=== PATIENT | male | born 1995 | race Caucasian/White ===

== ENCOUNTER 2018-08-17 22:36 | Emergency (ER) | payer OTHER ==
--- NOTE | 2018-08-18 01:01 | XR ---
EXAMINATION TYPE: XR chest 2V DATE OF EXAM: 08/18/2018 COMPARISON: NONE HISTORY: Cough and fever TECHNIQUE: Frontal and lateral views of the chest are obtained. FINDINGS: Heart and mediastinum are normal. Lungs are clear. Diaphragm is normal. Bony thorax is int act. Pulmonary vascularity is normal. IMPRESSION: Normal chest
[2018-08-18] MEDS ORDERED: IBUPROFEN 800 MG TAB PO STA (01:15)
--- NOTE | 2018-08-18 02:41 | ED ---
URI HPI - General Source: patient Mode of arrival: ambulatory Limitations: no limitations <July Fraga - Last Filed: 08/21/18 15:14> <Melissa Juan - Last Filed: 08/27/18 00:29> - General Chief Complaint: Upper Respiratory Infection Stated Complaint: Cough - History of Present Illness Initial Comments: 23yo male who denies PMH presenting today for cc of 2 days of cough, body aches , chills. Pt states that he has had a mild cough for the past two days, he developed worsening body aches, chills and felt warm to touch for the past 24 hours. Pt states he has also had sore throat but atributes this to coughing, pt denies sputum production. Pt states he coughs so hard he gets a headache, denies constant/peristent headache, chest pain, shortness of breath, abdomial pain, nausea, vomiting, diarrhea, congestion, photophobia, neck stiffness. When symptoms persisted he presented for evaluation. Upon arrival pt febrile, but appearing nontoxic. Remainder of ROS within acceptable limits (July Fraga) - Related Data Previous Rx's Medication Instructions Recorded Ibuprofen 800 mg PO Q8H PRN 7 Days #21 tablet 08/18/18 Allergies Allergy/AdvReac Type Severity Reaction Status Date / Time No Known Allergies Allergy Verified 08/17/18 23:09 Review of Systems ROS Other: All systems not noted in ROS Statement are negative. Constitutional: Reports: fever, chills, night sweats Eyes: Denies: vision change ENT: Reports: throat pain. Denies: ear pain Respiratory: Reports: cough. Denies: dyspnea, wheezes, hemoptysis, stridor Cardiovascular: Denies: chest pain, palpitations, dyspnea on exertion Endocrine: Reports: fatigue Gastrointestinal: Denies: abdominal pain, diarrhea Genitourinary: Denies: urgency, dysuria, frequency Musculoskeletal: Denies: back pain Skin: Denies: rash Neurological: Reports: headache. Denies: numbness, paresthesias, confusion <July Fraga - Last Filed: 08/21/18 15:14> ROS Other: All systems not noted in ROS Statement are negative. <Melissa Juan - Last Filed: 08/27/18 00:29> ROS Statement: Those systems with pertinent positive or pertinent negative responses have been documented in the HPI. Past Medical History Past Medical History: No Reported History History of Any Multi-Drug Resistant Organisms: None Reported Past Surgical History: No Surgical Hx Reported Past Psychological History: No Psychological Hx Reported Smoking Status: Current every day smoker Past Alcohol Use History: Rare Past Drug Use History: None Reported <July Fraga L - Last Filed: 08/21/18 15:14> General Exam Limitations: no limitations <July Fraga L - Last Filed: 08/21/18 15:14> <DrakeMelissa P - Last Filed: 08/27/18 00:29> - General Exam Comments Initial Comments: General: The patient is awake and alert, in no distress, and does not appear acutely ill. Eye: Pupils are equal, round and reactive to light, extra-ocular movements are intact. No nystagmus. There is normal conjunctiva bilaterally. No signs of icterus. Ears, nose, mouth and throat: There are moist mucous membranes and no oral lesions. Oropharynx nonerythematous, no tonsillar enlargement or lesions. Uvula midline. Tympanic membranes within normal limits bilaterally, no erythema , effusions, retractions or bulging. No noted perforation. External auditory canal been normal limits, no edema or erythema. No tenderness to palpation of the mastoid. Neck: The neck is supple, there is no tenderness or JVD. No anterior cervical adenopathy. Cardiovascular: There is a regular rate and rhythm. No murmur, rub or gallop is appreciated. Respiratory: Lungs are clear to auscultation, respirations are non-labored, breath sounds are equal. No wheezes, stridor, rales, or rhonchi. Dry cough audible, no specific characteristic. Gastrointestinal: Soft, non-distended, non-tender abdomen without masses or organomegaly noted. There is no rebound or guarding present. No CVA tenderness. Bowel sounds are unremarkable. Musculoskeletal: Normal ROM, no tenderness. Strength 5/5. Sensation intact. Radial pulses equal bilaterally 2+. Neurological: A&O x 3. CN II-XII intact, There are no obvious motor or sensory deficits. Coordination appears grossly intact. Speech is normal. Skin: Skin is warm and dry and no rashes or lesions are noted. Psychiatric: Cooperative, appropriate mood & affect, normal judgment. (July Fraga) Vital Signs 08/17/18 08/18/18 23:06 02:54 Temperature 99.7 F H 98.8 F Pulse Rate 112 H 100 Respiratory 18 16 Rate Blood Pressure 122/79 124/79 O2 Sat by Pulse 97 96 Oximetry Medical Decision Making <July Fraga - Last Filed: 08/21/18 15:14> <Melissa Juan - Last Filed: 08/27/18 00:29> - Medical Decision Making 23 with cc of cough, body aches. Influenza A positive. Pt was no flu vaccinated. Pt appears well. Pt given tylenol for fever mgmt. Findings discussed with pt. CXR and strep testing (-). I discussed symptomatic treatment with patient. Pt is agreeable. Pt is tolerating pO intake, mucous membranes moist on exam. At this time I feel is stable for discharge with primary care f/ u. I discussed at risk populations with patient for complications from influenza. Pt given work note. Pt is agreeable with discharge. Return parameters discussed at length with patient who verbalized understanding. Pt discharged instable condition after discussing case with Dr. Juan. (July Fraga) I was available for consultation in the emergency department. The history and physical exam were done by the midlevel provider. I was consulted for this patient's care. I reviewed the case with the midlevel provider and based on their presentation of the patient, I agree with the assessment, medical decision making and plan of care as documented. (Melissa Juan) - Lab Data Lab Results 08/18/18 08/18/18 Range/Units 01:26 01:26 Influenza Type A RNA Detected H (Not Detectd) Influenza Type B (PCR) Not Detected (Not Detectd) Group A Strep Rapid Negative (Negative) Disposition Is patient prescribed a controlled substance at d/c from ED?: No Time of Disposition: 02:41 <July Fraga - Last Filed: 08/21/18 15:14> <Melissa Juan - Last Filed: 08/27/18 00:29> Clinical Impression: Influenza A Disposition: HOME SELF-CARE Condition: Good Instructions: Influenza (ED) Additional Instructions: Please use over the counter medication as discussed. Please follow-up with family doctor in the next 2 days. Please return to emergency room if the symptoms increase or worsen or for any other concerns, as discussed. You are contagious, please stay away from young babies, women, elderly, and immunocompromised individuals Prescriptions: Ibuprofen 800 mg PO Q8H PRN 7 Days #21 tablet PRN Reason: Pain Referrals: Nonstaff,Physician [Primary Care Provider] - 1-2 days
[2018-08-18 02:56] VITALS: BP 124/79; PULSE 100; RESP 16; TEMP 98.8
== END 2018-08-18 02:55 | disposition home or self-care (01) ==
LOC: SUPCPDRO 22:36 → EC 22:36
DX: J10.1 Influenza due to other identified influenza virus with other respiratory manifestations (principal); F17.200 Nicotine dependence, unspecified, uncomplicated
CPT/HCPCS: 71046; 87081; 87430; 87502; 99283